=== PATIENT | male | born 1975 | race Caucasian/White ===

== ENCOUNTER 2022-05-10 17:17 | Emergency (ER) | payer MEDICAID ==
[~2022-05-10] VITALS: Ht 170.2 cm; Wt 81.6 kg
--- NOTE | 2022-05-10 18:30 | NUR ---
Donna magaña in ED - 05/10/22 at 1851 [facility] LEFT WITHOUT BEING SEEN BY DR. GALVAN. NO FURTHER CARE PROVIDED FOR PATIENT.
[2022-05-10 18:51] VITALS: BP 137/95
--- NOTE | 2022-05-10 18:59 | NUR ---
PT AMB TO BED12
[2022-05-10] MEDS ORDERED: DICYCLOMINE HCL LIQUID 20 MG, ALUMINUM HYD/MAG/SIMETHICONE 30 ML, LIDOCAINE VISCOUS 2% ... PO ONE ×3 (19:00)
[2022-05-10] MEDS ORDERED: ONDANSETRON 4 MG ODT PO ONE (19:00)
--- NOTE | 2022-05-10 19:25 | NUR ---
C/O DEHYDRATION S/P ONLY DRINKING ALCOHOL X 3DAYS. stong scent of etoh. speech is slightly garbled
[2022-05-10 19:32] VITALS: BP 137/95
--- NOTE | 2022-05-10 19:32 | NUR ---
Patient discharged with v/s stable. Written and verbal after care instructions given and explained. Patient verbalized understanding. Ambulatory with steady gait. All questions addressed prior to discharge. Advised to follow up with PMD.
== END 2022-05-10 19:32 | disposition home or self-care (01) ==
LOC: MED 17:17 → EDBD 17:17 → MED 19:32
DX: R53.1 Weakness (principal); Z72.89 Other problems related to lifestyle; Y90.9 Presence of alcohol in blood, level not specified
CPT/HCPCS: 99281